=== PATIENT | male | born 1990 | race Caucasian/White ===

== ENCOUNTER 2018-07-07 07:29 | Emergency (ER) | payer OTHER ==
[2018-07-07] MEDS ORDERED: NS 1,000 ML IV ONE ×2 (07:55→08:05)
[2018-07-07] MEDS ORDERED: ONDANSETRON 4 MG/2 ML VIAL IVP ONE (08:05)
[2018-07-07] MEDS ORDERED: FAMOTIDINE 20 MG/NACL 50 ML IV ONE (08:05)
[2018-07-07 08:14] LABS: PLATELET COUNT 281 10^3/uL (150-400)
[2018-07-07] MEDS ORDERED: PROMETHAZINE HCL 25 MG/ML INJ IVP ONE (08:37)
--- NOTE | 2018-07-07 08:41 | EDPHY ---
H & P Time Seen by Provider: 07/07/18 08:06 HPI/ROS: HPI Nausea and vomiting. 27-year-old male by private vehicle. This patient drove from [place] yesterday evening to a camping site outside of [place]. He reports that he ate on the road. He reports that he has had family at home with a gastrointestinal illness that includes nausea and vomiting. He started becoming nauseous yesterday evening and then was nauseous and vomiting through the night. He describes multiple episodes of nonbilious and nonbloody vomiting. No diarrhea. He describes having diffuse crampy abdominal discomfort. ROS: Constitutional: No fever, no chills. As above. Eyes: No discharge. No changes in vision. ENT: No sore throat. No nasal congestion or rhinorrhea. Respiratory: No cough. No shortness of breath. Cardiac: No chest pain, no palpitations. Gastrointestinal: As above, no diarrhea. Genitourinary: No hematuria. No dysuria or increased frequency with urination. Musculoskeletal: No back pain. No neck pain. No myalgias or arthralgias. Skin: No rashes. Neurological: No headache. No focal weakness or altered sensation. Past medical history: Chronic back pain. Appendectomy. Social history: Nonsmoker. Social alcohol. Currently here by himself. Physical Exam: General Appearance: Alert, no distress. Large man. This patient is responding to questions appropriately and in full sentences. This patient appears well-hydrated and well-nourished. Eyes: Pupils equal and round no pallor or injection. No lid edema, erythema or injection. Respiratory: There are no retractions, lungs are clear to auscultation with good air movement bilaterally. Cardiovascular: Regular rate and rhythm. No murmur. Gastrointestinal: Abdomen is soft with vague and mild tenderness on palpation throughout, no masses, bowel sounds normal. No focal tenderness at McBurney's point. No Tee sign. Neurological: Motor sensory function is grossly intact. Cranial nerves are normal. Gait is normal. Skin: Warm and dry, no rashes. Musculoskeletal: Neck is supple and nontender. Extremities are symmetrical. All joints range without pain or impingement. Psychiatric: No agitation. No depression. Database: EKG: Imaging: Procedures: Emergency department course: Triage vital signs reviewed and are unremarkable. An IV was placed. He was started on IV normal saline with 1-2 L to be given over the next 1-2 hours. He was initially given 4 mg of IV Zofran and 20 mg of IV Pepcid. 8:40 a.m., patient re-evaluated. He is feeling better. He has had some ice chips. He states that he still feels mildly nauseous. He was given 6.25 mg of IV Phenergan. His presentation is consistent with a food-borne illness or viral gastritis. 9:45 a.m., patient re-evaluated. Resting comfortably at this time. Repeat abdominal exam is soft, nontender nondistended. He is feeling much better. He is tolerating oral fluids without issues. He feels comfortable going home at this time. I feel he is safe for discharge. Follow-up and return to emergency department precautions reviewed with him. All of his questions were answered. He was discharged from the emergency department in good condition. Differential Diagnosis: The differential diagnosis on this patient includes but is not limited to food borne illness, viral gastritis. Appendicitis, bowel obstruction, cholecystitis , pancreatitis unlikely. This represents a partial list of diagnoses considered. These considerations are based on history, physical exam, past history, reassessment and diagnostic testing. Smoking Status: Current some day smoker Constitutional: Initial Vital Signs Temperature (C) 36.9 C 07/07/18 07:32 Heart Rate 76 07/07/18 07:32 Respiratory Rate 16 07/07/18 07:32 Blood Pressure 141/87 H 07/07/18 07:32 O2 Sat (%) 98 07/07/18 07:32 O2 Delivery Mode Room Air Allergies/Adverse Reactions: No Known Allergies Allergy (Unverified 07/07/18 07:31) Home Medications: Medication Instructions Recorded Lexapro 07/07/18 Promethazine HCl [Phenergan 25mg 25 mg PO Q4-6PRN PRN #12 tab 07/07/18 (*)] Medical Decision Making - Data Points Laboratory Results: Laboratory Results 07/07/18 07:45 07/07/18 07:45 07/07/18 07/07/18 07:45 07:45 WBC 10.92 10^3/uL H 10^3/uL (3.80-9.50) RBC 5.11 10^6/uL 10^6/uL (4.40-6.38) Hgb 15.3 g/dL g/dL (13.7-17.5) Hct 43.6 % % (40.0-51.0) MCV 85.3 fL fL (81.5-99.8) MCH 29.9 pg pg (27.9-34.1) MCHC 35.1 g/dL g/dL (32.4-36.7) RDW 13.6 % % (11.5-15.2) Plt Count 281 10^3/uL 10^3/uL (150-400) MPV 11.0 fL fL (8.7-11.7) Neut % (Auto) 80.1 % H % (39.3-74.2) Lymph % (Auto) 15.7 % % (15.0-45.0) [place] % (Auto) 3.7 % L % (4.5-13.0) Eos % (Auto) 0.0 % L % (0.6-7.6) Baso % (Auto) 0.1 % L % (0.3-1.7) Nucleat RBC Rel Count 0.0 % % (0.0-0.2) Absolute Neuts (auto) 8.76 10^3/uL H 10^3/uL (1.70-6.50) Absolute Lymphs (auto) 1.71 10^3/uL 10^3/uL (1.00-3.00) Absolute Monos (auto) 0.40 10^3/uL 10^3/uL (0.30-0.80) Absolute Eos (auto) 0.00 10^3/uL L 10^3/uL (0.03-0.40) Absolute Basos (auto) 0.01 10^3/uL L 10^3/uL (0.02-0.10) Absolute Nucleated RBC 0.00 10^3/uL 10^3/uL (0-0.01) Immature Gran % 0.4 % % (0.0-1.1) Immature Gran # 0.04 10^3/uL 10^3/uL (0.00-0.10) Sodium 141 mEq/L mEq/L (135-145) Potassium 3.8 mEq/L mEq/L (3.3-5.0) Chloride 106 mEq/L mEq/L (97-110) Carbon Dioxide 21 mEq/l L mEq/l (22-31) Anion Gap 14 mEq/L mEq/L (8-16) BUN 16 mg/dL mg/dL (7-23) Creatinine 0.6 mg/dL L mg/dL (0.7-1.3) Estimated GFR > 60 Glucose 130 mg/dL H mg/dL (70-100) Calcium 10.1 mg/dL mg/dL (8.5-10.4) Total Bilirubin 0.7 mg/dL mg/dL (0.1-1.4) Conjugated Bilirubin 0.2 mg/dL mg/dL (0.0-0.5) Unconjugated Bilirubin 0.5 mg/dL mg/dL (0.0-1.1) AST 26 IU/L IU/L (17-59) ALT 35 IU/L IU/L (21-72) Alkaline Phosphatase 69 IU/L IU/L (38-126) Total Protein 7.8 g/dL g/dL (6.3-8.2) Albumin 4.6 g/dL g/dL (3.5-5.0) Lipase 45 IU/L IU/L (23-300) Medications Given: Discontinued Medications Sodium Chloride (Ns) 1,000 mls @ 0 mls/hr IV EDNOW ONE; Wide Open PRN Reason: Protocol Stop: 07/07/18 07:56 Last Admin: 07/07/18 08:00 Dose: 1,000 mls Sodium Chloride (Ns) 1,000 mls @ 0 mls/hr IV EDNOW ONE; Wide Open PRN Reason: Protocol Stop: 07/07/18 08:06 Last Admin: 07/07/18 08:17 Dose: 1,000 mls Famotidine/Sodium Chloride (Pepcid 20 Mg (Premix)) 50 mls @ 200 mls/hr IV EDNOW ONE Stop: 07/07/18 08:19 Last Admin: 07/07/18 08:17 Dose: 50 mls Ondansetron HCl (Zofran) 4 mg IVP EDNOW ONE Stop: 07/07/18 08:06 Last Admin: 07/07/18 08:18 Dose: 4 mg Promethazine HCl (Phenergan) 6.25 mg IVP EDNOW ONE Stop: 07/07/18 08:38 Last Admin: 07/07/18 08:43 Dose: 6.25 mg Departure - Departure Disposition: Home, Routine, Self-Care Clinical Impression: Nausea and vomiting Condition: Good Instructions: Acute Nausea and Vomiting (ED) Additional Instructions: Read and follow provided instructions. Follow-up with your primary care physician in 1-2 days for re-evaluation. Take medication as prescribed for nausea. Return to the emergency department for worsening symptoms, vomiting and inability to keep fluids down despite medications, worsening abdominal pain or other serious concerns. Referrals: NONE *PRIMARY CARE P,. [Primary Care Provider] - As per Instructions Prescriptions: Promethazine HCl [Phenergan 25mg (*)] 25 mg PO Q4-6PRN PRN #12 tab PRN Reason: For Nausea & Vomiting
[2018-07-07 10:23] VITALS: BP 125/74
== END 2018-07-07 10:23 | disposition home or self-care (01) ==
DX: R11.2 Nausea with vomiting, unspecified (principal); E86.9 Volume depletion, unspecified; F17.200 Nicotine dependence, unspecified, uncomplicated
CPT/HCPCS: 96374; J2405; J2550

== ENCOUNTER 2018-09-26 21:57 | Emergency (ER) | payer OTHER ==
--- NOTE | 2018-09-26 22:33 | EDPHY ---
H & P Stated Complaint: FROM [place], ?ELEVATION SYN, VOMITING ALL DAY, SMALL AMOUNTS BLOOD Source: Patient Exam Limitations: No limitations - Personal History Current Tetanus/Diphtheria Vaccine: Yes - Medical/Surgical History Hx Asthma: No Hx Chronic Respiratory Disease: No Hx Diabetes: No Hx Cardiac Disease: No Hx Renal Disease: No Hx Cirrhosis: No Hx Alcoholism: No Hx HIV/AIDS: No Hx Splenectomy or Spleen Trauma: No Other PMH: APPY ,TONSILLECTOMY DEGENERATIVE DISC BACK ISSUES - Social History Smoking Status: Current some day smoker Time Seen by Provider: 09/26/18 22:32 HPI/ROS: HPI: This is a 77-year-old male who presents with Chief Complaint: FROM [place], ?ELEVATION SYN, VOMITING ALL DAY, SMALL AMOUNTS BLOOD Location: GI Quality: Nausea, vomiting Duration: All day Signs and Symptoms: no fever, + nausea, + vomiting, + hematemesis, no blood in stool, no abdominal bloating, no diarrhea, no back pain, no urinary symptoms, no testicular/groin pain, no indigestion, no chest pain, no shortness of breath Timing: Acute, intermittent episodes Severity: [id number] Context: Patient drove from [place] to [place] today. He reports that this morning when he woke up while at home he felt nauseous and vomited once. He then vomited after eating breakfast on the road. Since he arrived in [place] he has vomited once and then again in the emergency room waiting room. When he vomited in the emergency room he saw some blood tinged emesis. Denies regular alcohol use or NSAID use. He denies fever, diarrhea, abdominal pain, urinary symptoms, groin pain. He denies recent antibiotic use. No recent foreign travel. History of appendectomy. Modifying Factors: None Comment: ROS: A comprehensive 10 system review of systems is otherwise negative aside from elements mentioned in the history of present illness. MEDICAL/SURGICAL/SOCIAL HISTORY: Medical/surgical history: Appendectomy,TONSILLECTOMY DEGENERATIVE DISC BACK ISSUES Social history: Current some day smoker. Family history noncontributory. CONSTITUTIONAL: Anxious, young adult, overweight white male, awake and alert, no obvious distress HEENT: Atraumatic and normocephalic, PERRL, EOMI. Nares patent; no rhinorrhea; no nasal mucosal edema. Tympanic membranes clear. Oropharynx clear, no exudate and moist pink mucosa. Airway patent. No lymphadenopathy. No meningismus. Cardiovascular: Normal S1/S2, regular rate, regular rhythm, without murmur rub or gallop. PULMONARY/CHEST: Symmetrical and nontender. Clear to auscultation bilaterally. Good air movement. No accessory muscle usage. ABDOMEN: Soft, nondistended, nontender, no rebound, no guarding, no peritoneal signs, no masses or organomegaly. No CVAT. EXTREMITIES: 2/2 pulses, strength 5/5, no deformities, no clubbing, no cyanosis or edema. NEUROLOGICAL: no focal neuro deficits. GCS 15. SKIN: Warm and dry, no erythema. no rash. Good capillary refill. (Huyen Boothe) Constitutional: Initial Vital Signs Temperature (C) 36.4 C 09/26/18 22:01 Heart Rate 77 09/26/18 22:01 Respiratory Rate 20 09/26/18 22:01 Blood Pressure 112/80 09/26/18 22:01 O2 Sat (%) 97 09/26/18 22:01 O2 Delivery Mode Room Air Allergies/Adverse Reactions: No Known Allergies Allergy (Unverified 09/26/18 22:00) Home Medications: Medication Instructions Recorded Lexapro 07/07/18 Flonase Nasal [place] 09/26/18 Ondansetron Odt [Zofran Odt 4 mg 4 mg PO Q4 PRN #12 tab 09/26/18 (*)] Medical Decision Making - Diagnostics Imaging Results: Imaging Impressions Abdomen CT 09/26/18 22:40 Impression: 1. Normal bowel pattern. No obstruction or adynamic ileus. 2. No abscess, free fluid or localized intra-abdominal inflammatory process. 3. Appendix is surgically absent. No pericecal inflammatory process. Findings discussed with Emergency Department physician power plant assistant, Huyen Boothe at 09/27/2018 0:02. ED Course/Re-evaluation: PHYSICIAN DOCUMENTATION: The patient was evaluated and managed by the Physician Associate Store Leader. My co- signature indicates that I have reviewed this chart and I agree with the findings and plan of care as documented. I am the secondary supervising physician. (Amanda Wright) Vital signs reviewed and stable upon arrival. IV access and laboratory studies ordered along with CT abdomen and pelvis scan Given 2 L normal saline, IV morphine 6 mg, IV Zofran 4 mg and IV promethazine 12.5 mg 2315: Labs reviewed. WBC 15 K, glucose 151. No signs of anemia/platelet dysfunction/AFSHAN/elevated LFTs/electrolyte imbalance/pancreatitis/coagulopathy. 0001: Called by Dr. Murillo, who advised that CT abdomen and pelvis CT scan is essentially unremarkable and shows no signs of obstruction, colitis, diverticulitis, enteritis. 0005: Reassessed patient. Passed p.o. Trial. Reports relief of symptoms and asking to be discharged home. Given a prepack for promethazine and prescription for Zofran. This patient was seen under the supervision of my secondary supervising physician. I evaluated care for this patient independently. Discussed this patient with Dr. Wright who did not see the patient. (Huyen Boothe) Differential Diagnosis: Abdominal pain including but not limited to appendicitis, cholecystitis, gastritis and urinary tract infection. (Huyen Boothe) - Data Points Laboratory Results: Laboratory Results 09/26/18 22:35 09/26/18 22:35 09/26/18 09/26/18 09/26/18 22:35 22:35 22:35 WBC 15.16 10^3/uL H 10^3/uL (3.80-9.50) RBC 5.10 10^6/uL 10^6/uL (4.40-6.38) Hgb 15.3 g/dL g/dL (13.7-17.5) Hct 44.0 % % (40.0-51.0) MCV 86.3 fL fL (81.5-99.8) MCH 30.0 pg pg (27.9-34.1) MCHC 34.8 g/dL g/dL (32.4-36.7) RDW 13.9 % % (11.5-15.2) Plt Count 258 10^3/uL 10^3/uL (150-400) MPV 10.3 fL fL (8.7-11.7) Neut % (Auto) 80.6 % H % (39.3-74.2) Lymph % (Auto) 13.8 % L % (15.0-45.0) [place] % (Auto) 5.0 % % (4.5-13.0) Eos % (Auto) 0.1 % L % (0.6-7.6) Baso % (Auto) 0.1 % L % (0.3-1.7) Nucleat RBC Rel Count 0.0 % % (0.0-0.2) Absolute Neuts (auto) 12.22 10^3/uL H 10^3/uL (1.70-6.50) Absolute Lymphs (auto) 2.09 10^3/uL 10^3/uL (1.00-3.00) Absolute Monos (auto) 0.76 10^3/uL 10^3/uL (0.30-0.80) Absolute Eos (auto) 0.01 10^3/uL L 10^3/uL (0.03-0.40) Absolute Basos (auto) 0.02 10^3/uL 10^3/uL (0.02-0.10) Absolute Nucleated RBC 0.00 10^3/uL 10^3/uL (0-0.01) Immature Gran % 0.4 % % (0.0-1.1) Immature Gran # 0.06 10^3/uL 10^3/uL (0.00-0.10) PT 13.8 SEC SEC (12.0-15.0) INR 1.04 (0.83-1.16) APTT 23.7 SEC SEC (23.0-38.0) Sodium 141 mEq/L mEq/L (135-145) Potassium 3.7 mEq/L mEq/L (3.3-5.0) Chloride 105 mEq/L mEq/L (97-110) Carbon Dioxide 24 mEq/l mEq/l (22-31) Anion Gap 12 mEq/L mEq/L (6-14) BUN 12 mg/dL mg/dL (7-23) Creatinine 0.7 mg/dL mg/dL (0.7-1.3) Estimated GFR > 60 Glucose 151 mg/dL H mg/dL (70-100) Calcium 10.1 mg/dL mg/dL (8.5-10.4) Total Bilirubin 0.7 mg/dL mg/dL (0.1-1.4) Conjugated Bilirubin 0.2 mg/dL mg/dL (0.0-0.5) Unconjugated Bilirubin 0.5 mg/dL mg/dL (0.0-1.1) AST 26 IU/L IU/L (17-59) ALT 32 IU/L IU/L (21-72) Alkaline Phosphatase 68 IU/L IU/L (38-126) Total Protein 7.6 g/dL g/dL (6.3-8.2) Albumin 4.6 g/dL g/dL (3.5-5.0) Lipase 39 IU/L IU/L (23-300) Medications Given: Discontinued Medications Sodium Chloride (Ns) 1,000 mls @ 0 mls/hr IV EDNOW ONE; Wide Open PRN Reason: Protocol Stop: 09/26/18 22:40 Last Admin: 09/26/18 22:48 Dose: 1,000 mls Sodium Chloride (Ns) 1,000 mls @ 0 mls/hr IV EDNOW ONE; Wide Open PRN Reason: Protocol Stop: 09/26/18 22:40 Last Admin: 09/26/18 22:52 Dose: 1,000 mls Morphine Sulfate (Morphine) 6 mg IVP EDNOW ONE Stop: 09/26/18 22:40 Last Admin: 09/26/18 22:51 Dose: 6 mg Ondansetron HCl (Zofran) 4 mg IVP EDNOW ONE Stop: 09/26/18 22:40 Last Admin: 09/26/18 22:49 Dose: 4 mg Ondansetron HCl (Zofran Odt) 4 mg PO EDNOW ONE Stop: 09/27/18 00:17 Last Admin: 09/27/18 00:17 Dose: 4 mg Promethazine HCl (Phenergan) 12.5 mg IVP EDNOW ONE Stop: 09/26/18 22:40 Last Admin: 09/26/18 22:49 Dose: 12.5 mg Promethazine HCl (Phenergan 25 Mg Prepack #4) 1 btl TAKEHOME EDNOW ONE Stop: 09/26/18 23:44 Last Admin: 09/27/18 00:00 Dose: 1 btl Departure - Departure Disposition: Home, Routine, Self-Care Clinical Impression: Gastroenteritis Condition: Good Instructions: Promethazine (By mouth), Gastroenteritis (ED) Additional Instructions: Consume a minimum of 8-10 glasses of water or electrolyte fluid replacement drinks that include Gatorade, Powerade, Pedialyte. Eat a bland diet for the next 48 hours and then slowly advance as tolerated. Take Zofran 1 tab every 4 hours as needed for nausea, vomiting. Take promethazine every 4-6 hours as needed for nausea, vomiting not relieved by Zofran. Return to the Emergency Room if symptoms do not resolve in the next 48-72 hours , you spike a fever > 102 F, or experience intractable abdominal pain/nausea/ vomiting. Referrals: ELY CASTANEDA [Other] - As per Instructions Prescriptions: Ondansetron Odt [Zofran Odt 4 mg (*)] 4 mg PO Q4 PRN #12 tab PRN Reason: Nausea/Vomiting, Use 1st
[2018-09-26] MEDS ORDERED: NS 1,000 ML IV ONE ×2 (22:39)
[2018-09-26] MEDS ORDERED: PROMETHAZINE HCL 25 MG/ML INJ IVP ONE (22:39)
[2018-09-26] MEDS ORDERED: ONDANSETRON 4 MG/2 ML VIAL IVP ONE (22:39)
[2018-09-26 22:50] LABS: PLATELET COUNT 258 10^3/uL (150-400)
[2018-09-26 22:57] LABS: INR 1.04 (0.83-1.16); PROTIME(PATIENT) 13.8 SEC (12.0-15.0)
[2018-09-26] MEDS ORDERED: IOPAMIDOL (ISOVUE-300) 100 ML BTL ONE (22:58)
[2018-09-26] MEDS ORDERED: PROMETHAZINE 25 MG PREPACK #4 BTL TAKEHOME ONE (23:43)
[2018-09-26 23:54] VITALS: BP 148/79
[2018-09-27] MEDS ORDERED: ONDANSETRON DISINTEGRATING 4 MG TAB ONE (00:15)
[2018-09-27] MEDS ORDERED: ONDANSETRON DISINTEGRATING 4 MG TAB PO ONE (00:16)
== END 2018-09-27 00:17 | disposition home or self-care (01) ==
DX: K52.9 Noninfective gastroenteritis and colitis, unspecified (principal); E86.9 Volume depletion, unspecified
CPT/HCPCS: 96374; J2270; J2405; J2550; Q9967